=== PATIENT | male | born 1975 | race Caucasian/White ===

== ENCOUNTER 2025-03-10 11:16 | Emergency (ER) | payer MEDICARE, MEDICAID, SELFPAY ==
--- NOTE | 2025-03-10 11:22 | EKG_ITS ---
[facility] Test Date: 2025-03-10 Pat Name: ELIZABETH DUDLEY Department: Room: - Gender: Male [employer] Car [employer]: : 1975 Requested By: ED Temporary Provider Order Number: [id number] Reading MD: ED Temporary Provider Measurements Intervals [place] Rate: 112 P: 64 MA: 110 QRS: 73 QRSD: 91 T: 59 QT: 329 QTc: 450 Interpretive Statements SINUS TACHYCARDIA WITH SHORT MA INTERVAL ABNORMAL RHYTHM ECG No previous ECG available for comparison /store/S0/[id number]/[id number].pdf
[2025-03-10 11:30] VITALS: BP 163/99; PULSE 110; RESP 18; TEMP 36.9; O2SAT 99
--- NOTE | 2025-03-10 11:33 | XR_ITS ---
Examination: PA lateral chest 2 views TECHNIQUE: Upright PA lateral chest 2 views Date and time: March 10, 2025, 1134 hours INDICATIONS: Chest pain beginning 3 days ago. FINDINGS: Normal heart size. Lungs are clear. Advanced osteoarthritis right glenohumeral joint IMPRESSION: No pneumonia or pulmonary edema
--- NOTE | 2025-03-10 11:34 | EDRME_ITS ---
Rapid Medical Screening Exam RME Arrival date/time: 03/10/25 11:16 49-year-old male with no known medical history presents to the emergency room with a chief complaint of palpitations, dizziness, lightheadedness, chest pain x 3 days I have greeted and performed a focused initial assessment of this patient. A com prehensive ED assessment and evaluation of the patient, analysis of all test results, and completion of the medical decision making process will be conducted by additional ED providers. Chief Complaint: Arrhythmia/Palpitations Vital signs: Vital Signs Temperature 98.5 F 03/10/25 11:30 Pulse Rate 110 H 03/10/25 11:30 Respiratory Rate 18 03/10/25 11:30 Blood Pressure 163/99 H 03/10/25 11:30 Pulse Oximetry (%) 99 03/10/25 11:30 Oxygen Delivery Method Room Air 03/10/25 11:30 Vital signs reviewed by provider: Yes
[2025-03-10 12:26] LABS: Basophils # (Auto) 0.0 Thou/mm3 (0.0-0.2); Basophils % (Auto) 1 % (0-2.5); Eosinophils # (Auto) 0.0 Thou/mm3 (0.0-0.5); Eosinophils % (Auto) 0 % (0-10); Hematocrit 42.5 % (41.0-53.0); Hemoglobin 14.3 g/dL (13.5-16.0); Immature Granulocytes Auto 0.03 Thou/mm3 (0.00-0.00); Lymphocytes # (Auto) 0.9 Thou/mm3 (1.0-4.8); Lymphocytes % (Auto) 13 % (10-50); Mean Corpuscular HGB Conc 33.6 g/dl (31.0-37.0); Mean Corpuscular Hemoglobin 29.9 pg (25.0-35.0); Mean Corpuscular Volume 89 fL (80-100); Monocytes # (Auto) 0.5 Thou/mm3 (0.0-0.8); Monocytes % (Auto) 7 % (0-12); Neutrophils # (Auto) 5.9 Thou/mm3 (1.8-7.7); Neutrophils % (Auto) 80 % (37-80); Nucleated Red Blood Cell # 0.00 Thou/mm3 (0.00-0.00); Nucleated Red Blood Cell % 0 /100 WBC (0); Platelet Count 429 Thou/mm3 (140-440); RDW Standard Deviation 39.8 fL (35.1-43.9); Red Blood Count 4.79 Miln/mm3 (4.50-5.90); White Blood Count 7.5 Thou/mm3 (3.8-10.6)
[2025-03-10 12:45] LABS: B-Type Natriuretic Peptide 37 pg/mL (0-100)
[2025-03-10 12:46] LABS: Alanine Aminotransferase 12 U/L (10-49); Albumin, Serum 4.9 gm/dL (3.5-5.0); Albumin/Globulin Ratio 1.8 (1.2-2.2); Alkaline Phosphatase 78 U/L (46-116); Anion Gap 9 (7-16); Aspartate Amino Transferase 23 U/L (0-34); BUN/Creatinine Ratio 8 Ratio (12-20); Bilirubin,Total 0.8 mg/dL (0.3-1.2); Blood Urea Nitrogen 6 mg/dL (9-23); Calcium 10.3 mg/dL (8.3-10.6); Calcium (Corrected) 10.3 mg/dL (8.5-10.1); Carbon Dioxide 28.5 mMol/L (20.0-31.0); Chloride 100 mMol/L (98-107); Creatinine (Component) 0.8 mg/dL (0.6-1.3); Globulin 2.7 gm/dL (2.3-3.5); Glucose 104 mg/dL (74-106); Osmolality,Calculated 271 (275-295); Potassium 4.1 mMol/L (3.4-5.1); Sodium 137 mMol/L (136-145); Total Protein 7.6 gm/dL (5.7-8.2); Troponin I < 0.020 ng/mL (0.0-0.045); eGFR > 60 See Note
[2025-03-10 12:55] LABS: INR 1.1 (0.9-1.3); Partial Thromboplastin Time 29.3 Seconds (22.0-36.0); Prothrombin Time 11.3 Seconds (9.0-12.2)
--- NOTE | 2025-03-10 14:44 | EDNOTE_ITS ---
ED Dizzyness RME/HPI General Chief Complaint: Arrhythmia/Palpitations Stated Complaint: HR 132, LIGHT HEADED/DIZZY,CHEST PAIN,SENT BY [facility] Time Seen by Provider: 03/10/25 12:57 Arrival date/time: 03/10/25 11:16 RME / HPI RME / HPI Narrative: 03/10/25 11:16 49-year-old male with no known medical history presents to the emergency room with a chief complaint of palpitations, dizziness, lightheadedness, chest pain x 3 days I have greeted and performed a focused initial assessment of this patient. A comprehensive ED assessment and evaluation of the patient, analysis of all test results, and completion of the medical decision making process will be conducted by additional ED providers. DR. BATISTA MAIN ED EVALUATION 49 year old male with no stated chronic medical history presents to the ED for evaluation of light headedness and feeling faint beginning 1 week ago. Describes feeling I have no energy . Accompanied by nausea and vomiting beginning 4 days ago. States he is vomiting anywhere from 2-20 times a day. Emesis described as clear and watery that is occasionally yellow. Patient mentioned 2 weeks ago he placed boric acid on the floor of his home for ants and unsure if that is contributing to his symptoms. States today he consulted with his PCP at [facility] who sent here for further evaluation. Denies fevers, chills, chest pain, cough, shortness of breath, diarrhea, constipation, or urinary symptoms. Denies starting any new medications, recent travel, trying new foods, or sick contacts. Related Data Previous Rx's ?Medication ?Instructions ?Recorded azithromycin 250 mg tablet See Rx Instructions PO .COM PLEX #6 04/24/23 tabs ibuprofen 600 mg tablet 600 mg PO Q8H PRN pain #14 t abs 12/29/23 famotidine-Ca carb-mag hydrox 10 1 tab PO BID 4 days # 8 tabs 03/10/25 mg-800 mg-165 mg chewable tablet (Pepcid Complete) ondansetron 8 mg disintegrating 8 mg PO Q12H PRN nause a and 03/10/25 tablet vomiting #10 tabs prochlorperazine maleate 5 mg 5 mg PO TID PRN nausea a nd 03/10/25 tablet (Compazine) vomiting #14 tabs Allergies Allergy/AdvReac Type Severity Reaction Status Date / Time No Known Allergies Allergy Verified 03/10/25 11:20 Review of Systems Review of Systems Systems Reviewed: All systems reviewed, normal except as documented Past Medical History Past Medical History PSYCHO/SOCIAL: Positive Schizophrenia and Bipolar Disorder Social History SMOKING STATUS: Never smoker ED Exam Narrative Physical exam: Constitutional: Awake, alert, nontoxic, no acute distress HEENT: NC, AT, EOMI Neck: Supple CV: Tachycardic, no m/r/g Lungs: CTAB, no w/r/r, no respiratory distress. Abd: Soft, mild left lower abdominal pain, no HSM noted to palpation Extremities: No deformities, no edema noted Neuro: AAOx3, CN 2-12 GIBL, no acute neuro deficit noted. Skin: Warm, dry, intact Course Course Course Narrative: 1715h: Patient is feeling somewhat improved though still mildly tachy. Labs were reviewed and showed no acute significant abnormalities. An additional liter of fluids was ordered, with plans to discharge the patient home afterward. The patient has been able to tolerate oral intake. 1750h: After 2L of IV normal saline, the HR has improved and is now normal in the 80's. Patient has tolerated po, ok for DC home with scripts for anti-emetics and pepcid. Quality Measures none Orders Category Date Time Status EKG (ED ONLY) *Do not use* NOW Care 03/10/25 11:22 Completed Miscellaneous Nursing Order NOW Care 03/10/25 16:15 Active EKG (ED Only) Stat Exams 03/10/25 11:22 Ordered XR chest 2V Stat Exams 03/10/25 11:33 Completed B-Type Natriuretic Peptide Stat Lab 03/10/25 11:58 Completed CBC Stat Lab 03/10/25 11:58 Completed Comprehensive Metabolic Panel Stat Lab 03/10/25 11:58 Completed Drug Screen,Urine Stat Lab 03/10/25 17:33 Received Partial Thromboplastin Time Stat Lab 03/10/25 11:58 Completed Prothrombin Time with INR Stat Lab 03/10/25 11:58 Completed Troponin I Stat Lab 03/10/25 11:58 Completed Urinalysis, C/S if Indicated Stat Lab 03/10/25 17:33 Received Ondansetron Inj [Zofran Inj] Med 03/10/25 14:44 Discontinued 4 mg IVP X1 ONE Pantoprazole Inj [Protonix Inj] Med 03/10/25 14:44 Discontinued 40 mg IVP X1 ONE Prochlorperazine Inj [Compazine Inj] Med 03/10/25 14:44 Discontinued 10 mg IM X1 ONE Sodium Chloride 0.9% 1000 ml [Ns] 1,000 ml Med 03/10/25 14:44 Discontinued IV 999 mls/hr Sodium Chloride 0.9% 1000 ml [Ns] 1,000 ml Med 03/10/25 17:19 Active IV 999 mls/hr Vital Signs Vital signs: Vital Signs Temperature 98.5 F 03/10/25 11:30 Pulse Rate 110 H 03/10/25 11:30 Respiratory Rate 18 03/10/25 11:30 Blood Pressure 163/99 H 03/10/25 11:30 Pulse Oximetry (%) 99 03/10/25 11:30 Oxygen Delivery Method Room Air 03/10/25 11:30 Pulse ox is 99% on room air which is adequate. Dizziness MDM Narrative MDM Narrative:: Shellie Chopra am scribing for and in the presence of Dr. Batista. Patient data External records reviewed:: [facility] previous records Clinical information provided by:: patient Social determinants that could affect healthcare access:: alcohol use (reports drinking alcohol not often . ) Patient has the following chronic illnesses:: None reported How is presenting disease/condition affected by chronic disease/condition?: no chronic disease Evaluation data The following diagnostics were reviewed and interpreted by me:: lab results and radiology exam(s) Lab and/or radiology exams considered but not ordered:: None Interpretation Summary: Ordering Physician: Boston Parr Date of Service: 03/10/25 Procedure(s): XR chest 2V Accession Number(s): [id number] cc: Boston Parr; Scott Shelley MD~ Examination: PA lateral chest 2 views TECHNIQUE: Upright PA lateral chest 2 views Date and time: March 10, 2025, 1134 hours INDICATIONS: Chest pain beginning 3 days ago. FINDINGS: Normal heart size. Lungs are clear. Advanced osteoarthritis right glenohumeral joint IMPRESSION: No pneumonia or pulmonary edema Dictated By: Scott Shelley MD Signed By: <Electronically signed by Scott Shelley MD in OV> 03/10/25 1153 Medications / Prescriptions Medications or Prescriptions considered but not ordered:: None Medication administrations:: Medication Administration History Sodium Chloride (Ns) 1,000 mls @ 999 mls/hr IV .Q1H1M ONE Stop: 03/10/25 18:19 Last Admin: 03/10/25 17:28 Dose: 999 mls/hr Documented By: EF Discontinued Medications Sodium Chloride (Ns) 1,000 mls @ 999 mls/hr IV .Q1H1M ONE Stop: 03/10/25 15:44 Last Infusion: 03/10/25 15:58 Dose: Infused Documented By: Admin: 03/10/25 14:57 Dose: 999 mls/hr Documented By: EF Ondansetron HCl (Ondansetron Inj 2 Mg/Ml Inj 2 Ml) 4 mg IVP X1 ONE; Protocol Stop: 03/10/25 14:45 Last Admin: 03/10/25 14:58 Dose: 4 mg Documented By: EF Pantoprazole Sodium (Pantoprazole Inj 40 Mg Vial) 40 mg IVP X1 ONE Stop: 03/10/25 14:45 Last Admin: 03/10/25 14:57 Dose: 40 mg Documented By: EF Prochlorperazine Edisylate (Prochlorperazine Inj 5 Mg/Ml Vial 2 Ml) 10 mg IM X1 ONE; Protocol Stop: 03/10/25 14:45 Last Admin: 03/10/25 14:57 Dose: 10 mg Documented By: EF See above Consultations Consultation(s) initiated? (list below): No Diagnosis Most likely diagnosis given after review of the tests above:: Gastritis Nausea and vomiting Admission Indicated Admission indicated?: not indicated Admission Request Was there a request for admission?: No Disposition Plan Disposition Plan: Discharge Discharge Attestation Discharge Attestation: The patient and all family members were given an opportunity to ask questions and understood the discharge instructions. Discharge instructions specifically effects, indications for sooner follow up or return to the emergency department, and the expected course of current diagnosis. Patient condition: Stable Discharge Plan Plan Patient Disposition: HOME (Self Care) Patient condition on transfer: Stable Prescriptions/Referrals Prescriptions/Med Rec: New prochlorperazine maleate [Compazine] 5 mg tablet 5 mg PO TID PRN (Reason: nausea and vomiting) Qty: 14 0RF ondansetron 8 mg tablet,disintegrating 8 mg PO Q12H PRN (Reason: nausea and vomiting) Qty: 10 0RF Pepcid Complete 10-800-165 mg tablet,chewable 1 tab PO BID 4 Days Qty: 8 0RF No Action azithromycin 250 mg tablet See Rx Instructions .ROUTE .COMPLEX Qty: 6 0RF Rx Instructions: For 250 mg dose pack: take 500 mg today (day 1), then 250 mg for 4 days (days 2-5) ibuprofen 600 mg tablet 600 mg PO Q8H PRN (Reason: pain) Qty: 14 0RF Referrals: No Primary/Family,Physician [Primary Care Provider] - In 1 week Problem List Clinical Impression: Gastritis, Nausea & vomiting Impression comment: Gastritis, nausea and vomiting Patient/Caregiver Discharge Instructions Education Materials: ED Diet for Vomiting or ..., ED Gastritis (Adult), ED PEPTIC ULCER vs GASTRITIS Print Language: Swedish Stand Alone Forms: Joanna Award Info., Patient Portal Info Letter
[2025-03-10 14:47] VITALS: BP 163/109; PULSE 110; RESP 18; O2SAT 100
[2025-03-10] MEDS: SODIUM CHLORIDE 0.9% 1000 ML 1,000 ML 999 ML IV ×2 (14:57→17:28)
[2025-03-10] MEDS: PROCHLORPERAZINE INJ 5 MG/ML VIAL 2 ML 10 MG IM (14:57)
[2025-03-10] MEDS: ONDANSETRON INJ 2 MG/ML INJ 2 ML 4 MG IVP (14:58)
[2025-03-10 16:12] VITALS: BP 151/96; PULSE 86; RESP 21; TEMP 36.9; O2SAT 100
[2025-03-10 17:42] LABS: Collection Type, Urine Clean Catch; Squamous Epithelial Cell,Urine 0 /hpf (0-5)
[2025-03-10 18:09] LABS: Bilirubin,Urine Negative (Negative); Blood,Urine Negative (Negative); Clarity,Urine Clear (Clear/Hazy); Color,Urine Lt-Yellow (Lt Yel-Yel); Culture Indicated,Urine Not Indicated; Glucose, Urine Negative (Negative); Ketones,Urine 1+ (Negative); Leukocyte Esterase,Urine Negative (Negative); Nitrite,Urine Negative (Negative); PH,Urine 6.5 (5.0-7.0); Protein,Urine Negative (Neg - Trace); RBC,Urine < 1 /hpf (0-3); Specific Gravity,Urine 1.007 (1.001-1.035); Urobilinogen,Urine Negative mg/dL (0.0-1.0); WBC,Urine < 1 /hpf (0-5)
[2025-03-10 18:10] VITALS: BP 148/90; PULSE 91; RESP 19; TEMP 36.9; O2SAT 100
[2025-03-10 18:19] LABS: Sperm,Urine Present
[2025-03-10 18:54] LABS: Amphetamine/Methamp Scrn,U Positive (Negative); Barbiturate Screen,Urine Negative (Negative); Benzodiazepines Screen,Urine Negative (Negative); Benzoylecgonine Screen, Ur Negative (Negative); Fentanyl Screen,Urine Positive (Negative); Opiate Screen,Urine Negative (Negative); THC Screen,Urine Negative (Negative)
== END 2025-03-10 18:50 | disposition home or self-care (01) ==
PROVIDERS: Nurse Practitioner Family; Emergency Provider Family Medicine
DX: K29.70 Gastritis, unspecified, without bleeding (principal); R07.9 Chest pain, unspecified; R00.0 Tachycardia, unspecified
CPT/HCPCS: 36415; 71046; 80053; 80307; 81001; 83880; 84484; 85025; 85610; 85730; 93005; 96361; 96372; 96374; 96375; 99284; J0780; J2405; J2470; J7030